=== PATIENT | female | born 1940 ===

== ENCOUNTER 2022-04-30 07:45 | Inpatient (IN) | payer OTHER ==
[2022-04-30] MEDS ORDERED: TENORMIN25 MG PO (14:40)
[2022-04-30] MEDS ORDERED: GLIMEPIRIDE2 M1 PO (14:40)
[2022-04-30] MEDS ORDERED: GLUMETZA1000 MG PO (14:41)
[2022-04-30] MEDS ORDERED: ZESTRIL20 MG PO (14:41)
[2022-04-30] MEDS ORDERED: PROCAR PO (14:42)
[2022-04-30] MEDS ORDERED: [UNRECOGNIZED DRUG - OTHER] PO (14:42)
[2022-04-30] MEDS ORDERED: SIMVASTATIN40 MG PO (14:43)
[2022-04-30] MEDS ORDERED: LEVO-T50 MCG PO (14:43)
[2022-05-05] MEDS ORDERED: NIFE60TA3 (10:26)
[2022-05-05] MEDS ORDERED: PRED FORTE5 ML (10:27)
[2022-05-07] MEDS ORDERED: CEFADROXIL500 MG PO (16:23)
[2022-05-07] MEDS ORDERED: PERCOCET 5-3251 EACH PO (16:23)
[2022-05-07] MEDS ORDERED: ELIQUIS2.5 MG PO (16:23)
== END 2022-05-07 19:01 | DRG 470 ==
LOC: SURH 05-05 05:15 → O/R 05-05 05:15 → SURG 05-05 07:45 → SURH 05-05 10:44 → SURG 05-05 17:00 → SURH 05-07 19:01
PROVIDERS: ADMIT Orthopaedic Surgery; ATTEND Orthopaedic Surgery
PROC: 0MNN0ZZ Release Right Knee Bursa and Ligament, Open Approach (ICD-10-PCS; 2022-05-05)
PROC: 0SRC0J9 Replacement of Right Knee Joint with Synthetic Substitute, Cemented, Open Approach (ICD-10-PCS; principal; 2022-05-05 17:00)
DX: M17.11 Unilateral primary osteoarthritis, right knee (principal); D62 Acute posthemorrhagic anemia; M22.11 Recurrent subluxation of patella, right knee; M81.0 Age-related osteoporosis without current pathological fracture; Z20.822 Contact with and (suspected) exposure to COVID-19